=== PATIENT | female | born 2000 | race Caucasian/White ===

== ENCOUNTER 2019-01-19 00:18 | Emergency (ER) | payer OTHER ==
[~2019-01-19] VITALS: Ht 172.7 cm; Wt 48.5 kg
[2019-01-19 00:21] VITALS: BP 120/69
--- NOTE | 2019-01-19 02:45 | NUR ---
TO BED # 02 AMBULATORY
--- NOTE | 2019-01-19 03:30 | NUR ---
PT TO ED WITH C/O RT FOOT PAIN S/P STEPPING ON FOREIGN OBJECT. MILD REDNESS AND SWELLING NOTED AROUND AREA. PT PLACED INTO BED, PENDING MD FOSTER.
[2019-01-19 05:13] VITALS: BP 120/69
--- NOTE | 2019-01-19 05:13 | NUR ---
PATIENT ELOPED FROM FACILITY. DISCHARGE INSTRUCTIONS NOT GIVEN TO PATIENT. DR. MESA NOTIFIED.
== END 2019-01-19 05:13 | disposition left against medical advice (07) ==
LOC: MED 00:18
DX: S91.341A Puncture wound with foreign body, right foot, initial encounter (principal); W22.09XA Striking against other stationary object, initial encounter; Y93.02 Activity, running; Y92.098 Other place in other non-institutional residence as the place of occurrence of the external cause; Y99.8 Other external cause status
CPT/HCPCS: 73630; 99284; Q0092; 99283